=== PATIENT | male | born 1980 | race Caucasian/White ===

== ENCOUNTER 2020-04-02 09:44 | Outpatient (CLI) | payer OTHER, SELFPAY ==
--- NOTE | ~2020-04-02 | US_ITS ---
EXAMINATION:US venous doppler LE BI INDICATION:Leg edema TECHNIQUE: Multiple grayscale, color flow and Doppler images of the lower extremity deep venous syste ms were obtained and reviewed. COMPARISON:No prior studies for comparison. FINDINGS: The common femoral, superficial femoral and popliteal veins demonstrate normal respiratory variation, augmentation and compressibility. Color flow is also seen within the posterior tibial, pe roneal, greater saphenous and profunda veins. IMPRESSION: 1: No lower extremity deep venous thrombosis. Reviewed, dictated and finalized at location A.
== END 2020-04-02 09:45 | disposition home or self-care (01) ==
LOC: ANHIMG 09:45
PROVIDERS: PCP Family Medicine; Visit Provider Family Medicine
DX: R60.9 Edema, unspecified (principal); M79.604 Pain in right leg; M79.605 Pain in left leg
CPT/HCPCS: 93970

== ENCOUNTER 2020-05-01 15:03 | Outpatient (CLI) | payer OTHER, SELFPAY ==
--- NOTE | ~2020-05-01 | US_ITS ---
US breast LT limited 05/01/2020 15:21 Indication: Palpable lump for years. Recent increase swelling. Procedure: High-resolution ultrasound of the left breast Comparison: No prior studies for comparison. Findings: There are irregular duct-like phalanges extending from the skin surface into the breast at 7:00, 7 cm from the nipple which may represent sinus tract. The area of heterogeneous soft tissue rae sures 1.7 x 1.3 x 0.9 cm. There is some internal vascularity. Impression: 1: Complex heterogeneous mass of the left breast at 7:00, 7 cm from the nipple measuring 1.7 x 1.3 x 0.9 cm. Correlation with diagnostic bilateral mammogram is recommended. BI-RADS CATEGORY 0 - INCOMPLETE STUDY, NEED ADDITIONAL IMAGING EVALUATION. Reviewed, dictated and finalized at location A. Impression: 1: Complex heterogeneous mass of the left breast at 7:00, 7 cm from the nipple measuring 1.7 x 1.3 x 0.9 cm. Correlation with diagnostic bilateral mammogram i s recommended. BI-RADS CATEGORY 0 - INCOMPLETE STUDY, NEED ADDITIONAL IMAGING EVALUATION.
== END 2020-05-01 15:04 | disposition home or self-care (01) ==
PROVIDERS: PCP Family Medicine; Visit Provider Family Medicine
DX: N63.20 Unspecified lump in the left breast, unspecified quadrant (principal); R92.8 Other abnormal and inconclusive findings on diagnostic imaging of breast
CPT/HCPCS: 76642

== ENCOUNTER 2020-05-22 12:49 | Outpatient (CLI) | payer OTHER, SELFPAY ==
--- NOTE | ~2020-05-22 | MM_ITS ---
EXAMINATION: MM diagnostic mammo BI HISTORY: Palpable left breast mass TECHNIQUE: Additional 3-D tomosynthesis images of the breasts were performed and synthetic 2-D images were generated. CAD analysis was submitted and interpreted. COMPARISON: Ultrasound dated 05/01/2020 BREAST PARENCHYMAL COMPOSITION: Breast composed of scattered areas of fibroglandular density. FINDINGS: There are multiple intramammary lymph nodes in the left breast. There are no suspicious mas ses or architectural distortion. No abnormality is identified in the area of abnormality seen on prio r ultrasound. IMPRESSION: 1. No mammographic evidence for malignancy. Heterogeneous area of the left breast at 7:00 seen on [place] or ultrasound most likely represents phlegmonous change or fat necrosis. 2. Recommend 3 month follow-up left breast ultrasound with possible diagnostic left mammogram. BI-RADS category 3, probably benign findings. Reviewed, dictated and finalized at location A. IMPRESSION: 1. No mammographic evidence for malignancy. Heterogeneous area of the left [address] at 7:00 seen on prior ultrasound most likely represents phlegmonous change o r fat necrosis. 2. Recommend 3 month follow-up left breast ultrasound with possible diagnostic left mammogram. BI-RADS category 3, probably benign findings.
== END 2020-05-22 12:50 | disposition home or self-care (01) ==
LOC: ANHIMG 12:52
PROVIDERS: PCP Family Medicine; Visit Provider Family Medicine
DX: N63.20 Unspecified lump in the left breast, unspecified quadrant (principal)
CPT/HCPCS: 77066

== ENCOUNTER 2022-03-13 07:10 | Emergency (ER) | payer OTHER, SELFPAY ==
[2022-03-13 07:12] VITALS: BP 162/89; PULSE 95; RESP 18; TEMP 36.7; O2SAT 95
[2022-03-13 07:23] VITALS: BP 165/97; PULSE 109; RESP 21; TEMP 37; O2SAT 95
--- NOTE | 2022-03-13 07:41 | ECG_ITS ---
Measurements Intervals [place] Rate: 106 P: 52 OR: 162 QRS: -40 QRSD: 111 T: 40 QT: 345 QTc: 460 Interpretive Statements SINUS TACHYCARDIA LEFT AXIS DEVIATION POOR R WAVE PROGRESSION, ANTERIOR LEADS INFERIOR INFARCT, AGE INDETERMINATE BASELINE WANDER- V2 ABNORMAL ECG Electronically Signed On 03-13-2022 7:58:54 CDT by Miguelito Bermeo D.O.
--- NOTE | 2022-03-13 07:52 | ED.GENADULT ---
HPI - General Adult General Chief complaint: Extremity Injury, Upper Stated complaint: neck pain Time Seen by Provider: 03/13/22 07:18 History of Present Illness HPI narrative: Patient is a 41-year-old male who presents ER with neck pain. Intermittent since November 2021. Patient saw his PCP and was started on a prednisone taper as well as cyclobenzaprine. He reports his pain is worse with turning his head and with extension of his neck. No fevers but has had some sweats while on the steroids. No IV drug abuse. No recent skin infections. Has some mild radiation to his right arm which worsens with neck movements. He had outpatient imaging of his neck and right shoulder due to this. It appears he has degenerative changes at C5-C6. No numbness or tingling in the right arm. Only referred pain. Related Data Allergies Allergy/AdvReac Type Severity Reaction Status Date / Time No Known Allergies Allergy Mild Verified 03/13/22 07:32 Review of Systems Review of Systems: All systems reviewed & are unremarkable except as noted in HPI and below Constitutional: Constitutional: Denies chills and Denies fever(s) Comments: Sweats ENT: Denies nasal congestion and Denies sore throat Cardiovascular: Cardiovascular: Denies chest pain, Denies rapid heart rate and Denies radiating jaw, neck or arm pain Respiratory: Respiratory: Denies cough and Denies dyspnea Gastrointestinal: Gastrointestinal: Denies abdominal pain, Denies nausea and Denies vomiting Musculoskeletal: Musculoskeletal: Denies back pain (Neck), Denies arthralgias and Denies muscle cramps Neurologic: Denies focal weakness and Denies numbness [facility] Past Medical History Medical History (Updated 03/13/22 @ 10:08 by Norman Gonzáles MD) Diabetes Erectile dysfunction Hypertension Mixed hyperlipidemia Obstructive sleep apnea Tobacco abuse Urolithiasis Surgical History Surgical History History of urethral stent Family History Family History Grandparent Family history of Alzheimer's disease Social History Social History Smoking status: Former smoker Tobacco type: cigarettes Second hand tobacco smoke exposure: Yes Smoking end date: 05/25/20 Alcohol intake: current Drinks per week: 15 Substance use: never Substance use type: does not use Gender identity (if verbalized by the patient): Male Exam Narrative: GENERAL: Well-appearing, well-nourished, and in no acute distress. HEAD: Normocephalic, atraumatic. EYES: PERRL and EOMI. NECK: Supple. No reproducible paraspinal muscular tenderness palpable spasm. Normal range of motion. CHEST: Clear to auscultation. No respiratory distress. HEART: Regular rate and rhythm. Normal peripheral pulses. EXTREMITIES: Normal range of motion. No edema. SKIN: Warm, dry, no rash. NEURO: Alert and oriented x3. PSYCH: Normal mood and affect. Course Course Emergency Course: Patient informed of results. Slight leukocytosis given recent prednisone use. Given chronicity it is felt to be more related to the degenerative changes seen on x-ray. ACS entertained but troponin and EKG unremarkable. Recommend continue anti-inflammatories. Discussed he may require physical therapy. Worse case scenario he may require surgery but she would likely need MRI for them. He should discuss this with his primary care doctor. Vital Signs Vital signs: Vital Signs Temperature 98.1 F 03/13/22 07:12 Pulse Rate 95 03/13/22 07:12 Respiratory Rate 18 03/13/22 07:12 Blood Pressure 162/89 H 03/13/22 07:12 Pulse Oximetry 95 03/13/22 07:12 Temperature 98.6 F 03/13/22 07:23 Pulse Rate 96 03/13/22 09:08 Respiratory Rate 24 H 03/13/22 09:08 Blood Pressure 164/88 H 03/13/22 09:08 Pulse Oximetry 97 03/13/22 09:08 Medical Decision M
[2022-03-13] MEDS: KETOROLAC 30 MG/ML VIAL (*BKC) IV PUSH (07:56)
[2022-03-13 07:59] LABS: Basophils Percent Auto 0.2 % (0.2-1.2); Eosinophils Absolute Auto 0.1 K/mm3 (0-0.3); Eosinophils Percent Auto 0.9 % (0-4.4); Hematocrit 46.6 % (42.0-52.0); Hemoglobin 15.9 g/dL (14.0-18.0); Immature Granulocyte Absolute 0.05 K/mm3 (0.00-0.031); Immature Granulocyte Percent A 0.4 % (0-0.5); Lymphocytes Absolute Auto 0.78 K/mm3 (0.9-3.2); Lymphocytes Percent Auto 6.3 % (18.3-44.2); Mean Corpuscular HGB Conc 34.1 g/dl (32-36); Mean Corpuscular Hemoglobin 31.2 pg (26-34); Mean Corpuscular Volume 91.4 fl (80-100); Mean Platelet Volume 8.6 fl (7.4-10.4); Monocytes Percent Auto 8.1 % (2.6-8.5); Neutrophils Absolute Auto 10.3 K/mm3 (1.3-6.7); Neutrophils Percent Auto 84.1 % (45.5-73.1); Platelet Count Result 171 k/mm3 (150-375); Red Cell Distribution Width 13.3 % (11.5-14.5); White Blood Count 12.3 K/mm3 (4.5-10.0)
[2022-03-13 08:11] LABS: Anion Gap 7 mmol/L (8-16); Blood Urea Nitrogen 19 mg/dL (9-20); Calcium 8.7 mg/dL (8.4-10.2); Carbon Dioxide 28 mmol/L (22-30); Chloride 100 mmol/L (98-107); Estimated CRCL calculation 218 ml/min; Estimated Glomerular Filt Rate > 60; Glucose 179 mg/dL (65-110); Potassium 3.6 mmol/L (3.4-5.0); Sodium 135 mmol/L (137-145)
[2022-03-13 08:22] LABS: Troponin I < 0.012 ng/mL (0.000-0.034)
[2022-03-13 09:08] VITALS: BP 164/88; PULSE 96; RESP 24; O2SAT 97
[2022-03-13 10:26] VITALS: BP 154/97; PULSE 103; RESP 17; O2SAT 95
== END 2022-03-13 10:25 | disposition home or self-care (01) ==
PROVIDERS: Emergency Provider Emergency Medicine; PCP Family Medicine
DX: M54.12 Radiculopathy, cervical region (principal); E11.9 Type 2 diabetes mellitus without complications; I10 Essential (primary) hypertension; E78.2 Mixed hyperlipidemia; G47.33 Obstructive sleep apnea (adult) (pediatric); Z87.891 Personal history of nicotine dependence; R00.0 Tachycardia, unspecified; R94.31 Abnormal electrocardiogram [ECG] [EKG]; Z79.84 Long term (current) use of oral hypoglycemic drugs; Z79.4 Long term (current) use of insulin
CPT/HCPCS: 36415; 80048; 84484; 85025; 93005; 96374; 99284; J1885

== ENCOUNTER 2022-09-07 14:51 | Emergency (ER) | payer OTHER, SELFPAY ==
[2022-09-07 15:02] VITALS: BP 170/95; PULSE 88; RESP 12; TEMP 36.9; O2SAT 97
--- NOTE | 2022-09-07 15:16 | ED.LOWEXIN ---
HPI - Extremity Injury (Lower) General Chief Complaint: Extremity Injury, Lower Stated Complaint: lt foot injury, WC Time Seen by Provider: 09/07/22 15:17 Source: patient Mode of arrival: ambulatory Limitations: no limitations History of Present Illness HPI Narrative: 42 y/o male presented for c/o of left foot swelling and bruising. Patient works for an [employer] store and reports dropping a battery on his foot 5 days ago. Patient states that he has been walking on it just fine and has continued to go to work. He states that he became more concerned when the bruising moved from the top of his forefoot to his toes and developed more swelling. Hx DM, pt concerned about foot care. Denies significant pain, or any limitation in his ADLs d/t the injury. Denies numbness, tingling or weakness. Related Data Allergies Allergy/AdvReac Type Severity Reaction Status Date / Time No Known Allergies Allergy Mild Verified 08/11/22 15:54 Review of Systems Review of Systems: CONSTITUTIONAL: Denies body aches, fever, chills CARDIOVASCULAR: Denies chest pain, palpitations. Endorses mild edema to bilateral lower legs at baseline. RESPIRATORY: Denies cough or dyspnea. SKIN: Denies any open wounds. Reports bruising to all toes to left foot. MUSCULOSKELETAL: Denies decreased ROM to the left foot, toes, or ankle. Reports that he has continued to work and walk on it since his injury without difficulty. All systems reviewed & are unremarkable except as noted in HPI and below PMFSH Past Medical History Medical History Diabetes Erectile dysfunction Hypertension Mixed hyperlipidemia Obstructive sleep apnea Tobacco abuse Urolithiasis Surgical History Surgical History History of urethral stent Family History Family History Grandparent Family history of Alzheimer's disease Social History Social History Smoking status: Former smoker Tobacco type: cigarettes Second hand tobacco smoke exposure: Yes Smoking end date: 05/25/20 Alcohol intake: current Drinks per week: 15 Substance use: never Substance use type: does not use Gender identity (if verbalized by the patient): Male Comments At time of signature, I have reviewed and agree with nursing past medical, surgical, social and family history unless otherwise noted. Please see nursing chart for further information. There is no relevant family history pertinent to the presenting complaint Exam Narrative: GENERAL: Well-appearing. CHEST: Speaks in full sentences. No respiratory distress. HEART: Regular rate and rhythm. Normal and equal peripheral pulses. EXTREMITIES: Left foot, ankle, and toes have normal strength and sensation, normal range of motion, minimal pain with movement. Mild swelling to left foot with moderate bruising over toes, No point tenderness. No open wounds, or obvious deformity; pulse palpable and equal bilaterally, skin warm, and dry. Brown discoloration to left lower leg consistent with chronic venous stasis. Capillary refill less than 3 seconds. SKIN: Warm, dry, no rash. Course Course Emergency Course: Patient is aware of diagnosis, understands and agrees to treatment plan. Anticipatory guidance given. Patient agrees to follow-up as directed and is aware of reasons to seek care at the emergency department. Portions of this record may have been created with voice recognition software Level of Care: Express Care Visit Vital Signs Vital signs: Vital Signs Temperature 98.5 F 09/07/22 15:02 Pulse Rate 88 09/07/22 15:02 Respiratory Rate 12 09/07/22 15:02 Blood Pressure 170/95 H 09/07/22 15:02 Pulse Oximetry 97 09/07/22 15:02 Oxygen Delivery Room Air 09/07/22 15:02 Temperature 98.5 F 09/07/22 15:02
== END 2022-09-07 15:33 | disposition home or self-care (01) ==
PROVIDERS: Emergency Provider Nurse Practitioner Family; PCP Family Medicine
DX: S90.32XA Contusion of left foot, initial encounter (principal); W20.8XXA Other cause of strike by thrown, projected or falling object, initial encounter; Z87.891 Personal history of nicotine dependence; E11.9 Type 2 diabetes mellitus without complications; I10 Essential (primary) hypertension; E78.2 Mixed hyperlipidemia; G47.33 Obstructive sleep apnea (adult) (pediatric); Z96.0 Presence of urogenital implants
CPT/HCPCS: 99212; G0463

== ENCOUNTER 2022-11-25 09:35 | Emergency (ER) | payer OTHER, SELFPAY ==
[2022-11-25 09:46] VITALS: BP 137/94; PULSE 89; RESP 16; TEMP 37.2; O2SAT 98
--- NOTE | 2022-11-25 10:02 | ED.URI ---
HPI - URI/Sore Throat General Chief Complaint: Upper Respiratory Infection Stated Complaint: SINUSES BURNING Time Seen by Provider: 11/25/22 09:53 Source: patient Mode of arrival: ambulatory Limitations: no limitations History of Present Illness HPI Narrative: Patient presents today complaining of nasal congestion, sinus pressure and burning since last night. Denies cough, fever, sore throat, ear pain, or any additional symptoms. He has been taking Tylenol cold and flu with some relief. History of hypertension and diabetes. States he was treated 3 weeks ago with Augmentin for tonsillitis and ear infection. Related Data Home Medications Medication Instructions Recorded Confirmed testosterone cypionate 100 mg/mL 50 mg IM ONCE 11/17/22 11/25/22 intramuscular oil Allergies Allergy/AdvReac Type Severity Reaction Status Date / Time No Known Allergies Allergy Mild Verified 11/25/22 09:53 Review of Systems Review of Systems: CONSTITUTIONAL: Denies body aches, fever, chills, or sweats. EYES: Denies visual changes, redness, or discharge. ENT: Denies rhinorrhea, sore throat, or otalgia.+ congestion, sinus pressure CARDIOVASCULAR: Denies chest pain, palpitations, or edema. RESPIRATORY: Denies cough or dyspnea. GASTROINTESTINAL: Denies abdominal pain, nausea, vomiting, or diarrhea. GENITOURINARY: Denies dysuria or hematuria. SKIN: Denies rash, itching, or wounds. MUSCULOSKELETAL: Denies back pain, joint pain, or myalgia. NEUROLOGIC: Denies headache, numbness, tingling, or weakness. PSYCH: Denies depression or anxiety. [facility] Past Medical History Medical History Diabetes Erectile dysfunction Hypertension Mixed hyperlipidemia Obstructive sleep apnea Tobacco abuse Urolithiasis Surgical History Surgical History History of urethral stent Family History Family History Grandparent Family history of Alzheimer's disease Social History Social History Smoking status: Former smoker Tobacco type: cigarettes Second hand tobacco smoke exposure: Yes Smoking end date: 05/25/20 Alcohol intake: current Drinks per week: 15 Substance use: never Substance use type: does not use Lack of Transportation: No Lack of Food: Never True Current Housing: I Have Housing Concerned About Future Housing: No Difficulty Paying Gas/Electric Bills: No Difficulty Paying for Meds: No Currently Unemployed: No Education: Associate Degree Difficulty w/ Childcare or Family Care: No Living arrangements: with family Occupation/Education: occupation Gender identity (if verbalized by the patient): Male Sexual Orientation (if Verbalized by the Patient): Straight or Heterosexual Spiritual care concerns: No Agree to blood products: Yes Comments At time of signature, I have reviewed and agree with nursing past medical, surgical, social and family history unless otherwise noted. Please see nursing chart for further information. There is no relevant family history pertinent to the presenting complaint Exam Narrative: GENERAL: Well-appearing, well-nourished, and in no acute distress. HEAD: Normocephalic, atraumatic. EYES: EOMI. PERRL. No redness or drainage. Conjunctivae normal. ENT: Mucous membranes pink and moist. Nares congested. Clearing throat frequently. No frontal or maxillary sinus tenderness with palpation. No rhinorrhea. TMs normal bilaterally. Throat normal. Uvula midline. NECK: Normal AROM. Supple. No lymphadenopathy. CHEST: No respiratory distress. Clear to auscultation. HEART: Regular rate and rhythm. No murmur appreciated. Normal peripheral pulses. EXTREMITIES: Normal range of motion. No edema. SKIN: Warm, dry, no rash. Capillary refill normal. N
== END 2022-11-25 10:10 | disposition home or self-care (01) ==
PROVIDERS: Emergency Provider Nurse Practitioner; PCP Family Medicine
DX: J06.9 Acute upper respiratory infection, unspecified (principal); Z87.891 Personal history of nicotine dependence; E11.9 Type 2 diabetes mellitus without complications; I10 Essential (primary) hypertension; E78.2 Mixed hyperlipidemia
CPT/HCPCS: 99211; 99213; G0463

== ENCOUNTER 2024-01-06 09:02 | Outpatient (CLI) | payer OTHER, SELFPAY ==
--- NOTE | ~2024-01-06 | XR_ITS ---
Lumbosacral Spine: AP, oblique, and lateral views Clinical History: Pain Findings: The normal lordotic curve is maintained. No fracture or subluxation seen in the lumbar spin e. Probable minimal anterior wedging deformity of T12 and T11. There is minimal degenerative disc ravin nge throughout the lumbar spine. There are minimal facet joint degenerative changes. The sacroiliac j oints are normally outlined. Impression: Probable minimal anterior wedging deformities of T11 and T12. No fracture or subluxation lumbar spine. Minimal degenerative spondylosis of the lumbar spine. Reviewed, dictated and finalized at location . [facility] Impression: Probable minimal anterior wedging deformities of T11 and T12. No fracture or subluxation lumbar spine. Minimal degenerative spondylosis of the lumbar spine.
== END 2024-01-06 09:03 ==
LOC: MICIMG 09:04
PROVIDERS: PCP Physician Assistant Medical; Visit Provider Physician Assistant Medical
DX: M54.30 Sciatica, unspecified side (principal)
CPT/HCPCS: 72110

== ENCOUNTER 2024-01-14 17:15 | Emergency (ER) | payer OTHER, SELFPAY ==
[2024-01-14 17:23] VITALS: BP 155/85; PULSE 92; RESP 16; TEMP 36.8; O2SAT 97
--- NOTE | 2024-01-14 17:50 | ED.URI ---
HPI - URI/Sore Throat General Chief Complaint: Upper Respiratory Infection Stated Complaint: throat/cough Time Seen by Provider: 01/14/24 18:02 History of Present Illness HPI Narrative: 43 y/o male presented for c/o sinus congestion, sore throat, and bilaeral ear pressure for about 2 days. with similar symptoms. Taking Sudafed, Tylenol cold and Sinus, antihistamine, nasal spray without improvement. denies shortness of breath wheezing, nausea vomiting, diarrhea, fevers or chills. Related Data Home Medications Medication Instructions Recorded Confirmed omeprazole 20 mg capsule,delayed 20 mg PO DAILY 05/11/23 01/14/24 release doxycycline hyclate 100 mg capsule 100 mg PO BID 01/14/24 01/14/24 Allergies Allergy/AdvReac Type Severity Reaction Status Date / Time No Known Allergies Allergy Mild Verified 01/14/24 17:48 Review of Systems Review of Systems: ROS per HPI [facility] Past Medical History Medical History Diabetes Erectile dysfunction Hypertension Mixed hyperlipidemia Obstructive sleep apnea Tobacco abuse Urolithiasis Surgical History Surgical History History of urethral stent Family History Family History Grandparent Family history of Alzheimer's disease Social History Social History Smoking status: Former smoker Tobacco type: cigarettes Second hand tobacco smoke exposure: Yes Smoking end date: 05/25/20 Alcohol intake: current Drinks per week: 15 Substance use: never Substance use type: does not use Lack of Transportation: No Lack of Food: Never True Current Housing: I Have Housing Concerned About Future Housing: No Difficulty Paying Gas/Electric Bills: No Difficulty Paying for Meds: No Currently Unemployed: No Education: Associate Degree Difficulty w/ Childcare or Family Care: No Living arrangements: with family Occupation/Education: occupation Gender identity (if verbalized by the patient): Male Sexual Orientation (if Verbalized by the Patient): Straight or Heterosexual Spiritual care concerns: No Agree to blood products: Yes Exam Narrative: GENERAL: well-appearing, no acute distress. EYES: conjunctivae clear ENT: Mucous membranes moist. nasal congestion TM pearly coello with normal light reflex and clear effusion bilaterally; no tragal tenderness. Oropharynx erythematous without lesions. Tonsils enlarged and without exudate. No drooling, no hoarseness, no trismus, uvula midline. No tripod positioning, hot potato voice, or soft palate swelling. NECK: Supple. No lymphadenopathy CHEST: Clear to auscultation, breath sounds equal. No respiratory distress, speaks in full sentences. HEART: Regular rate and rhythm. No murmur heard. SKIN: Warm, dry, no rash. NEURO: Alert and oriented x3. Course Course Emergency Course: Patient is aware of diagnosis, understands and agrees to treatment plan. Anticipatory guidance given. Patient agrees to follow-up as directed and is aware of reasons to seek care at the emergency department. Portions of this record may have been created with voice recognition software Level of Care: Express Care Visit Vital Signs Vital signs: Vital Signs Temperature 98.3 F 01/14/24 17:23 Pulse Rate 92 01/14/24 17:23 Respiratory Rate 16 01/14/24 17:23 Blood Pressure 155/85 H 01/14/24 17:23 Pulse Oximetry 97 01/14/24 17:23 Oxygen Delivery Room Air 01/14/24 17:23 Temperature 98.3 F 01/14/24 17:23 Pulse Rate 92 01/14/24 17:23 Respiratory Rate 16 01/14/24 17:23 Blood Pressure 155/85 H 01/14/24 17:23 Pulse Oximetry 97 01/14/24 17:23 Oxygen Delivery Room Air 01/14/24 17:23 MDM - URI/Sore Throat MDM Narrative Medical decision making narrativ
== END 2024-01-14 18:09 | disposition home or self-care (01) ==
PROVIDERS: Emergency Provider Nurse Practitioner Family; PCP Family Medicine
DX: J06.9 Acute upper respiratory infection, unspecified (principal); Z87.891 Personal history of nicotine dependence; E11.9 Type 2 diabetes mellitus without complications; I10 Essential (primary) hypertension; E78.2 Mixed hyperlipidemia
CPT/HCPCS: 87081; 87804; 87880; 99213; G0463

== ENCOUNTER 2024-08-03 07:26 | Emergency (ER) | payer OTHER, SELFPAY ==
[2024-08-03 07:30] VITALS: BP 172/110; PULSE 92; RESP 16; TEMP 36.3; O2SAT 96
--- NOTE | 2024-08-03 07:46 | ED.GENADULT ---
HPI - General Adult General Chief complaint: Extremity Problem,Nontraumatic Stated complaint: R shoulder pain Time Seen by Provider: 08/03/24 07:33 History of Present Illness HPI narrative: This is a a 44-year-old male presenting ED with chief complaint right shoulder pain. Patient has a history of neck and shoulder discomfort. Pain started 1 week ago is located in the right trapezius. He has been taking Motrin Tylenol and some tizanidines he had from previous muscle discomfort with minimal relief. Yesterday he went had a deep tissue massage which has made his pain significantly worse. He has also seen his physical therapist this morning give him some stretches that seemed to help. Patient notes that he is still having spasms in that area there cause significant discomfort. He does have some pins and needles shooting into his hand in see C8/T1 distribution. No weakness, no trauma, no fevers. Related Data Home Medications Medication Instructions Recorded Confirmed omeprazole 20 mg capsule,delayed 20 mg PO DAILY 05/11/23 07/27/24 release Allergies Allergy/AdvReac Type Severity Reaction Status Date / Time No Known Allergies Allergy Mild Verified 08/03/24 07:47 [facility] Past Medical History Medical History Diabetes Erectile dysfunction Hypertension Mixed hyperlipidemia Obstructive sleep apnea Tobacco abuse Urolithiasis Surgical History Surgical History History of urethral stent Family History Family History Grandparent Family history of Alzheimer's disease Social History Social History Smoking status: Former smoker Tobacco type: cigarettes Second hand tobacco smoke exposure: Yes Smoking end date: 05/25/20 Alcohol intake: current Drinks per week: 15 Substance use: never Substance use type: does not use Lack of Transportation: No Lack of Food: Never True Current Housing: I Have Housing Concerned About Future Housing: No Difficulty Paying Gas/Electric Bills: No Difficulty Paying for Meds: No Currently Unemployed: No Education: Associate Degree Difficulty w/ Childcare or Family Care: No Living arrangements: with family Occupation/Education: occupation Gender identity (if verbalized by the patient): Male Sexual Orientation (if Verbalized by the Patient): Straight or Heterosexual Spiritual care concerns: No Agree to blood products: Yes Exam Narrative: APPEARANCE: No apparent distress. Head: atraumatic. EYES: EOMI, NOSE: Atraumatic NECK: Trachea midline RESPIRATORY: No increased rate of breathing CARDIOVASCULAR: RRR, ABDOMINAL: Non-distended MUSCULOSKELETAl: Tenderness to palpation over the right trapezius, the muscle is tense as compared to the left. Patient has full control of the right arm. Radial ulnar median nerve motor distributions intact. Cap refills less than 2 seconds and strong pulses. NEURO: Alert. Moving 4/4 extremities SKIN:: Warm, dry. Normal color PSYCHIATRIC: Normal affect Course Vital Signs Vital signs: Vital Signs Temperature 97.4 F L 08/03/24 07:30 Pulse Rate 92 08/03/24 07:30 Respiratory Rate 16 08/03/24 07:30 Blood Pressure 172/110 H 08/03/24 07:30 Pulse Oximetry 96 08/03/24 07:30 Oxygen Delivery Room Air 08/03/24 07:30 Temperature 97.4 F L 08/03/24 07:30 Pulse Rate 92 08/03/24 07:30 Respiratory Rate 16 08/03/24 07:30 Blood Pressure 172/110 H 08/03/24 07:30 Pulse Oximetry 96 08/03/24 07:30 Oxygen Delivery Room Air 08/03/24 07:30 Medical Decision Making [facility] Narrative Medical decision making narrative: -Course: 44-year-old male presenting ED with chief right trapezius pain and spasms associated with some C8-T1 radiculopathy. Physical exam significant for ten
[2024-08-03] MEDS: HYDROcodone/acetaminophen (*CRX) 5-325 MG TABLET 2 TAB PO (07:58)
[2024-08-03] MEDS: methocarbamoL 750 MG TABLET PO (07:58)
[2024-08-03] MEDS: KETOROLAC 30 MG/ML VIAL (*BKC) IM (07:58)
== END 2024-08-03 08:05 | disposition home or self-care (01) ==
LOC: ANHED 07:52
PROVIDERS: Emergency Provider Emergency Medicine; PCP Family Medicine
DX: M62.830 Muscle spasm of back (principal); M54.12 Radiculopathy, cervical region; I10 Essential (primary) hypertension; E11.9 Type 2 diabetes mellitus without complications; E78.2 Mixed hyperlipidemia; G47.33 Obstructive sleep apnea (adult) (pediatric); Z87.891 Personal history of nicotine dependence; Z79.85 Long-term (current) use of injectable non-insulin antidiabetic drugs; Z79.899 Other long term (current) drug therapy; Z79.4 Long term (current) use of insulin
CPT/HCPCS: 96372; 99283; A9270; J1885

== ENCOUNTER 2024-09-13 09:12 | Outpatient (CLI) | payer OTHER, SELFPAY ==
--- NOTE | ~2024-09-13 | MR_ITS ---
EXAMINATION: MR cervical spine wo con DATE: 09/13/2024 09:44 INDICATION: Radiculopathy, cervical region. TECHNIQUE: Magnetic resonance imaging (MRI) of the cervical spine was performed without intravenous c ontrast. COMPARISON: None FINDINGS: There is hypolordosis of cervical spine. Vertebral body heights are normal. There is mildly decreased disc height at C5-C6. The spinal cord signal intensity is normal. The following disc level s are specifically discussed: C2-C3: The disc does not extend beyond the endplate margin. There is no uncovertebral joint osteoarth ritis. There is mild bilateral facet joint osteoarthritis. There is no neural foraminal stenosis. The re is no central canal stenosis. C3-C4: There is a central extrusion. There is mild bilateral uncovertebral joint osteoarthritis. Ther e is mild right and moderate left facet joint osteoarthritis. There is mild bilateral neural foramina l stenosis. There is mild central canal stenosis with ventral indentation of the spinal cord. C4-C5: There is a central extrusion. There is mild left uncovertebral joint osteoarthritis. There is moderate bilateral facet joint osteoarthritis. There is mild left neural foraminal stenosis. There is mild central canal stenosis with ventral indentation of the spinal cord. C5-C6: There is a central extrusion. There is moderate bilateral uncovertebral joint osteoarthritis. There is moderate right and severe left facet joint osteoarthritis. There is moderate bilateral neura l foraminal stenosis. There is moderate central canal stenosis with ventral and dorsal indentation of the spinal cord. C6-C7: There is a right central and foraminal zone extrusion. There is mild lateral uncovertebral javier nt osteoarthritis. There is moderate bilateral facet joint osteoarthritis. There is moderate right an d mild left neural foraminal stenosis. There is mild central canal stenosis with ventral indentation of the spinal cord. There is severe stenosis of right lateral recess. C7-T1: There is a central extrusion. There is no uncovertebral joint osteoarthritis. There is mild bi lateral facet joint osteoarthritis. There is no neural foraminal stenosis. There is mild central nirav l stenosis. IMPRESSION: 1. Moderate cervical spondylosis. Reviewed, dictated and finalized at location A. CLERK
== END 2024-09-13 09:13 | disposition home or self-care (01) ==
PROVIDERS: PCP Family Medicine; Visit Provider Family Medicine
DX: M43.02 Spondylolysis, cervical region (principal)
CPT/HCPCS: 72141